=== PATIENT | female | born 1990 | race Caucasian/White ===

== ENCOUNTER 2022-06-01 13:10 | Emergency (ER) | payer OTHER ==
[~2022-06-01] VITALS: Ht 182.9 cm; Wt 67.0 kg
[2022-06-01 15:13] LABS: BASOPHILS % 0.2 % (0.0-2.0); EOSINOPHILS % 0.3 % (0.0-5.0); HEMATOCRIT. 32.1 % (36.0-48.0); HEMOGLOBIN. 11.2 g/dL (12.0-16.0); LYMPHOCYTES % 8.8 % (20.0-50.0); MEAN CORPUSCULAR HEMOGLOBIN 33.2 pg (28.0-32.0); MEAN CORPUSCULAR VOLUME 94.9 fL (81.0-99.0); MEAN PLATELET VOLUME 8.8 fl (7.4-10.4); NEUTROPHILS % 85.7 % (40.0-76.0); PLATELET 206 x1000/uL (130-400); RED BLOOD CELL COUNT 3.38 mill/uL (4.2-5.4)
[2022-06-01] MEDS ORDERED: SODIUM CHLORIDE 0.9% 1,000 ML IV ONE (15:15)
[2022-06-01 15:19] LABS: CHLORIDE 105 mEq/L (98-107)
[2022-06-01 15:46] LABS: CLARITY URINE CLEAR (CLEAR); COLOR URINE YELLOW (YELLOW); KETONES URINE NEGATIVE (NEGATIVE); LEUKOCYTE ESTERASE URINE NEGATIVE (NEGATIVE); NITRITE URINE NEGATIVE (NEGATIVE); OCCULT BLOOD URINE NEGATIVE (NEGATIVE); PH URINE 5.5 (4.5-8.0); PROTEIN URINE NEGATIVE (NEGATIVE); UROBILINOGEN URINE 0.2 E.U./dL (0.2-1.0)
[2022-06-01 15:47] LABS: B-HCG QUANTITATIVE 10779 mIU/mL (<3)
[2022-06-01 17:48] VITALS: BP 96/60
[2022-06-01] MEDS ORDERED: PV W1TAB21 PO (19:37)
== END 2022-06-01 17:50 | disposition home or self-care (01) ==
LOC: ER 13:38 → EDBD 13:38 → ER 17:50
DX: O21.8 Other vomiting complicating pregnancy (principal); O26.893 Other specified pregnancy related conditions, third trimester; R10.9 Unspecified abdominal pain; R19.7 Diarrhea, unspecified; Z3A.28 28 weeks gestation of pregnancy; Z88.5 Allergy status to narcotic agent
CPT/HCPCS: 36415; 76805; 80053; 81003; 81025; 84702; 85025; 96360; 99284; J7030

== ENCOUNTER 2022-06-01 18:01 | Observation (INO) | payer OTHER ==
[2022-06-01] MEDS ORDERED: PV W1TAB21 PO (19:37)
[2022-06-01] MEDS ORDERED: MAGNESIUM/ALUMINUM HYDROXIDE/SIMETHICONE 30ML UDC PO NR (21:05)
== END 2022-06-01 20:30 | disposition home or self-care (01) ==
LOC: 8 EST A/PP 18:01
PROVIDERS: ADMIT Obstetrics & Gynecology; ATTEND Obstetrics & Gynecology
DX: O26.892 Other specified pregnancy related conditions, second trimester (principal); R19.7 Diarrhea, unspecified; O62.9 Abnormality of forces of labor, unspecified; Z3A.27 27 weeks gestation of pregnancy
CPT/HCPCS: 59025; G0378; 99281; G0379